=== PATIENT | male | born 1950 | race Caucasian/White ===

== ENCOUNTER 2025-05-09 10:42 | Outpatient (AMB) | payer BC, SELFPAY | END 2025-05-09 10:48 | disposition home or self-care (01) | LOC: HO.HMGAL 10:42 | PROVIDERS: PCP Internal Medicine; Visit Provider Registered Nurse Emergency | DX: J30.89 Other allergic rhinitis (principal) | CPT/HCPCS: 95117; 95165 ==

== ENCOUNTER 2025-06-27 13:33 | Outpatient (AMB) | payer BC, SELFPAY | END 2025-06-27 13:34 | disposition home or self-care (01) | LOC: HO.HMGAL 13:33 | PROVIDERS: PCP Internal Medicine; Visit Provider Registered Nurse Emergency | DX: J30.89 Other allergic rhinitis (principal) | CPT/HCPCS: 95117; 95165 ==

== ENCOUNTER 2025-08-22 10:33 | Outpatient (AMB) | payer BC, SELFPAY | END 2025-08-22 10:33 | disposition home or self-care (01) | LOC: HO.HMGAL 10:33 | PROVIDERS: PCP Internal Medicine; Visit Provider Registered Nurse Emergency | DX: J30.89 Other allergic rhinitis (principal) | CPT/HCPCS: 95117; 95165 ==